=== PATIENT | female | born 1955 | race Caucasian/White ===

== ENCOUNTER → 2016-12-17 | Outpatient (CLI) | payer BC ==
[~2016-12-17] MED LIST: CALAN; CEFTIN250 MG PO; ENJUVIA; ENJUVIA0.45 MG PO; JANUVIA50 MG PO; LORTAB 5/500 501 TAB PO; NAPROSYN500 MG PO; PHENTERMINE; PROMETRIUM100 MG PO; PROMETRIUM100 MG/CAP PO; PYRIDIUM200 MG PO; SYNTHROID0.075 MG/T PO; SYNTHROID0.125 MG/T PO
== END ==
LOC: MC.RAD 09:56
DX: Z12.31 Encounter for screening mammogram for malignant neoplasm of breast (principal)

== ENCOUNTER → 2018-01-10 | Outpatient (CLI) | payer BC | LOC: MC.RAD 11:12 | DX: Z12.31 Encounter for screening mammogram for malignant neoplasm of breast (principal) ==

== ENCOUNTER 2018-06-15 07:32 | Emergency (ER) | payer BC ==
[~2018-06-15] VITALS: Ht 165.1 cm; Wt 122.7 kg
[2018-06-15 07:49] VITALS: TEMP 98
[2018-06-15] MEDS ORDERED: ESTRACE0.5 MG PO (08:37)
[2018-06-15 08:54] LABS: BASO # 0.1 (0.0-0.2); BASO % 0.8 % (0.0-2.0); EOS # 0.2 (0.0-0.7); EOS % 2.3 % (0-4.0); GRAN # 4.5 (1.4-6.5); GRAN % 69.1 % (42.2-75.2); HEMATOCRIT 42.6 % (37.0-47.0); HEMOGLOBIN 13.5 g/dl (12.5-16.0); LYMPH # 1.3 (1.2-3.4); LYMPH % 19.4 % (20.0-51.0); MEAN CELL VOLUME 95 fl (80.0-100.0); MEAN CORPUSCULAR HEMOGLOBIN 30 pg (27.0-31.0); MEAN CORPUSCULAR HGB CONC 32 g/dl (33.0-37.0); MEAN PLATELET VOLUME 10.9 fl (7.4-10.4); MONO # 0.5 (0.1-0.6); MONO % 7.9 % (1.7-9.3); PLATELET COUNT 243 K/mm3 (130-400); RED BLOOD COUNT 4.51 M/mm3 (4.10-5.30); REDCELL DISTRIBUTION WIDTH-CV 12.6 % (11.5-14.5)
[2018-06-15 09:07] LABS: ALBUMIN 4.1 gm/dL (3.5-5.0); BILIRUBIN,TOTAL 0.4 mg/dL (0.0-1.0); C-REACTIVE PROTEIN 1.1 mg/dL (0.0-0.9); CALCIUM 8.9 mg/dL (8.4-10.2); CREATININE, serum 0.76 (0.52-1.25); POTASSIUM 3.9 mmol/L (3.4-5.0); TOTAL PROTEIN 7.2 gm/dL (6.4-8.2)
[2018-06-15 09:08] LABS: COLLECTION METHOD CLEAN CATCH
[2018-06-15 09:13] LABS: MUCOUS Present /lpf; PH 5 (5-8); URINE APPEARANCE Clear; URINE BACTERIA Rare /hpf; URINE BILIRUBIN Negative (NEGATIVE); URINE BLOOD Negative (NEGATIVE); URINE COLOR Yellow; URINE GLUCOSE Negative (NEGATIVE); URINE KETONE Negative (NEGATIVE); URINE LEUKOCYTE ESTERASE Negative (NEGATIVE); URINE NITRATE Negative (NEGATIVE); URINE PROTEIN(semi-quant) Negative (NEGATIVE); URINE RBC 0-2 /hpf; URINE UROBILINOGEN Negative (NEGATIVE)
[2018-06-15] MEDS ORDERED: PERCOCET 325 MG1 TA2 PO (10:57)
[2018-06-15] MEDS ORDERED: LIDODERM 5% PATC1 EA TP (10:57)
[2018-06-15] MEDS ORDERED: FLEXERIL 1010 MG/TAB PO (10:57)
[2018-06-15 11:20] VITALS: BP 144/62; PULSE 60
== END 2018-06-15 11:20 | disposition home or self-care (01) ==
LOC: COL.ER 07:32
PROVIDERS: Physician Assistant
DX: S39.012A Strain of muscle, fascia and tendon of lower back, initial encounter (principal); E03.9 Hypothyroidism, unspecified
CPT/HCPCS: J0780; J1170; J2405

== ENCOUNTER → 2018-12-17 | Outpatient (CLI) | payer BC ==
[~2018-12-17] MED LIST changes: +ESTRACE0.5 MG PO; +FLEXERIL 1010 MG/TAB PO; +LIDODERM 5% PATC1 EA TP; +PERCOCET 325 MG1 TA2 PO
== END ==
LOC: MC.RAD 12-15 14:45
DX: Z12.31 Encounter for screening mammogram for malignant neoplasm of breast (principal)

== ENCOUNTER → 2019-08-12 | Outpatient (CLI) | payer BC | LOC: MC.RAD 11:05 | DX: N63.13 Unspecified lump in the right breast, lower outer quadrant (principal); N63.20 Unspecified lump in the left breast, unspecified quadrant; Z79.890 Hormone replacement therapy ==

== ENCOUNTER 2019-10-15 10:00 | Outpatient (RCR) | payer BC | END 2019-10-16 08:11 | disposition home or self-care (01) | LOC: MKS.ESL.PT 10:00 | DX: M25.561 Pain in right knee (principal) ==

== ENCOUNTER → 2019-12-04 | Outpatient (CLI) | payer BC | LOC: MC.RAD 08:34 | DX: Z12.31 Encounter for screening mammogram for malignant neoplasm of breast (principal); N63.10 Unspecified lump in the right breast, unspecified quadrant ==

== ENCOUNTER → 2019-12-11 | Outpatient (CLI) | payer BC | LOC: MC.RAD 08:51 | DX: N60.01 Solitary cyst of right breast (principal) ==

== ENCOUNTER 2020-06-07 06:46 | Day surgery (SDC) | payer BC ==
[~2020-06-07] VITALS: Ht 165.1 cm; Wt 122.5 kg
[2020-06-07 07:28] VITALS: BP 152/82; PULSE 96; TEMP 98.1
[2020-06-07] MEDS ORDERED: ONE-A-DAY ESSE1 EACH PO (07:36)
[2020-06-07] MEDS ORDERED: LUTEIN6 MG PO (07:36)
[2020-06-07] MEDS ORDERED: MASON NATURAL2000 IU PO (07:37)
--- NOTE | 2020-06-07 07:39 | NUR ---
Taken via cart to ENDO suite for procedure. Spouse remains in room.
[2020-06-07 08:45] VITALS: BP 141/65; PULSE 74; TEMP 98.2
--- NOTE | 2020-06-07 08:45 | NUR ---
Pt returned via cart to [facility]. Pt SBA with ambulation to recliner. Dr Beltre in to visit with spouse post procedure. VSS-see flowsheet. Pt denied food or drink at this time. Sitting up in recliner and thankful to staff for "doing a good job". Denied needs or complaints.
[2020-06-07 09:00] VITALS: BP 132/77; PULSE 76
[2020-06-07 09:15] VITALS: BP 135/74; PULSE 73
--- NOTE | 2020-06-07 09:27 | NUR ---
Pts VS remain stable. Pt refused to eat or drink at this time, but denies nausea or pain. IV removed, pressure dressing applied. Pt dressed in to personal clothing. Discharge teaching completed, pt and spouse verbalized understanding. Taken via wheelchair to private vehicle for dc home with spouse driving.
== END 2020-06-07 09:27 | disposition home or self-care (01) ==
LOC: SDCO 06:46
DX: D12.0 Benign neoplasm of cecum (principal); I47.1 Supraventricular tachycardia; E03.9 Hypothyroidism, unspecified; Z90.49 Acquired absence of other specified parts of digestive tract; Z86.010 Personal history of colon polyps; Z79.890 Hormone replacement therapy; Z20.822 Contact with and (suspected) exposure to COVID-19; Z79.899 Other long term (current) drug therapy; Z96.649 Presence of unspecified artificial hip joint; Z88.8 Allergy status to other drugs, medicaments and biological substances; E66.01 Morbid (severe) obesity due to excess calories; Z86.73 Personal history of transient ischemic attack (TIA), and cerebral infarction without residual deficits; Z80.0 Family history of malignant neoplasm of digestive organs; Z82.49 Family history of ischemic heart disease and other diseases of the circulatory system
CPT/HCPCS: J2704; J7030

== ENCOUNTER → 2020-11-21 | Outpatient (CLI) | payer BC ==
[~2020-11-21] MED LIST changes: +LUTEIN6 MG PO; +MASON NATURAL2000 IU PO; +ONE-A-DAY ESSE1 EACH PO
== END ==
LOC: MC.RAD 11:45
DX: Z12.31 Encounter for screening mammogram for malignant neoplasm of breast (principal)

== ENCOUNTER → 2021-11-14 | Outpatient (CLI) | payer BC | LOC: MC.RAD 07:51 | DX: Z12.31 Encounter for screening mammogram for malignant neoplasm of breast (principal) ==

== ENCOUNTER → 2023-08-26 | Outpatient (CLI) | payer MEDICARE, BC | LOC: MC.RAD 10:15 | DX: Z12.31 Encounter for screening mammogram for malignant neoplasm of breast (principal) ==